=== PATIENT | male | born 1990 | race Caucasian/White ===

== ENCOUNTER 2016-07-27 00:25 | Emergency (ER) | payer OTHER, BC ==
[2016-07-27 00:47] LABS: BASOPHIL COUNT 0.1 K/uL (0-0.1); EOSINOPHIL (%) 0.7 % (0-5); EOSINOPHIL COUNT 0.1 K/uL (0-0.3); HEMATOCRIT 44.3 % (38.0-50.0); IMMATURE GRANULOCYTE (%) 0.7 % (0.0-0.7); IMMATURE GRANULOCYTE COUNT 1.3 K/uL; LYMPHOCYTE COUNT 4.1 K/uL (1.0-2.8); MCH 27.4 PG (29.0-34.0); MCHC 34.3 G/DL (30.0-36.0); MCV 79.8 FL (86-99); MEAN PLAT.VOLUME 11.6 uM^3 (9.0-12.4); MONOCYTE (%) 7.2 % (3-12); MONOCYTE COUNT 1.4 K/uL (0-0.8); NEUTROPHIL COUNT 13.8 K/uL (1.8-6.4); PLATELET COUNT 252 K/uL (156-360); RBC DIS.WIDTH-CV 12.3 % (11.8-14.6); RBC DIS.WIDTH-SD 35.1 % (39-53); RED BLOOD COUNT 5.55 M/uL (4.00-5.50); WHITE BLOOD COUNT 19.6 K/uL (4.1-10.2)
[2016-07-27 00:56] LABS: AMYLASE 42 IU/L (1-118); CHLORIDE 104 mEq/L (99-109); POTASSIUM 3.8 mEq/L (3.7-5.4); SODIUM 137 mEq/L (136-147)
[2016-07-27 00:58] LABS: GLUCOSE 108 mg/dL (70-99)
[2016-07-27 00:59] LABS: ANION GAP 11 MEQ/L (2-14)
[2016-07-27 01:01] LABS: SERUM ETHYL ALCOHOL < 10 mg/dL
[2016-07-27 01:02] LABS: UREA NITROGEN (BUN) 18 mg/dL (9-23)
[2016-07-27 01:04] LABS: LIPASE 28 U/L (1.0-51.0)
[2016-07-27 01:08] LABS: GFR ESTIMATE (CALCULATED) > 59 mL/min/
[2016-07-27] MEDS ORDERED: MOTRIN800 MG PO (02:25)
[2016-07-27] MEDS ORDERED: PERCOCET 5/31 TABLET PO (02:25)
[2016-07-27 05:04] LABS: ADD MIUA? NO; BILIRUBIN NEGATIVE; BLOOD NEGATIVE; COLOR YELLOW ((YELLOW)); GLUCOSE (STRIP) NEGATIVE; KETONES NEGATIVE; LEUKOCYTES NEGATIVE; NITRITE NEGATIVE; PROTEIN (STRIP) NEGATIVE; UCUL ADDED? NO; UROBILINOGEN 0.2 MG/DL (0.2-1.0)
[2016-07-27 05:18] LABS: SPECIFIC GRAVITY 1.071 (1.000-1.030)
[2016-07-27 05:22] LABS: AMPHETAMINE PRESUMPTIVE POSITIVE (500 ng/mL); BARBITURATES NEGATIVE (200 ng/mL); BENZODIAZEPINES PRESUMPTIVE POSITIVE (150 ng/mL); COCAINE NEGATIVE (150 ng/mL); INTERNAL CONTROLS VALID? YES; METHADONE NEGATIVE (200 ng/mL); METHAMPHETAMINE NEGATIVE (500 ng/mL); OPIATES (MORPHINE) NEGATIVE (100 ng/mL); OXYCODONE NEGATIVE (100 ng/mL); PHENCYCLIDINE NEGATIVE (25 ng/mL); PROPOXYPHENE NEGATIVE (300 ng/mL); THC CANNABINOIDS NEGATIVE (50 ng/mL); TRICYCLIC ANTIDEPRESSANTS NEGATIVE (300 ng/mL)
[2016-07-27 05:23] LABS: ADD MEDTOX COMMENT Y
[2016-07-27 05:52] LABS: BENZODIAZEPINES QUANT VALUE 0 NG/ML
[2016-07-27 05:55] LABS: BENZODIAZEPINES, URINE SCREEN Negative (200 ng/mL)
== END 2016-07-27 05:22 | disposition home or self-care (01) ==
LOC: TRA 00:25
PROVIDERS: Emergency Medicine
DX: S22.42XA Multiple fractures of ribs, left side, initial encounter for closed fracture (principal); S70.11XA Contusion of right thigh, initial encounter; S70.12XA Contusion of left thigh, initial encounter; S00.81XA Abrasion of other part of head, initial encounter; S70.312A Abrasion, left thigh, initial encounter; S80.811A Abrasion, right lower leg, initial encounter; V44.5XXA Car driver injured in collision with heavy transport vehicle or bus in traffic accident, initial encounter; R00.0 Tachycardia, unspecified; R11.0 Nausea
CPT/HCPCS: 70450; 71260; 72125; 72129; 72132; 73552; 73590; 73700; 74177; 80048; 81003; 82150; 83690; 84999; 85025; 86850; 86900; 86901; 90832; 93005; 99281; 99285; G0480; J1885; J2405; J3010; J7030